=== PATIENT | female | born 1940 | race Caucasian/White ===

== ENCOUNTER 2017-03-08 11:18 | Outpatient (CLI) | payer MEDICARE, MEDICAID ==
--- NOTE | 2017-03-08 12:46 | Diagnostic Imaging Report ---
Indication: Cough Comparison: 12/10/2007 2 views of the chest obtained. No definite infiltrate or pulmonary vascular congestion identified. The heart is normal in size. The aorta is mildly enlarged consistent with atherosclerotic vascular disease. The bones are osteopenic. Impression: No acute disease
== END 2017-03-08 13:18 | disposition home or self-care (01) ==
LOC: RAD 11:18
DX: R05 Cough (principal); M85.88 Other specified disorders of bone density and structure, other site
CPT/HCPCS: 71020